=== PATIENT | male | born 1950 | race Caucasian/White ===

== ENCOUNTER 2018-05-31 11:30 | Emergency (ER) | payer OTHER ==
[~2018-05-31] VITALS: Ht 182.9 cm; Wt 98.0 kg
[2018-05-31 11:33] VITALS: TEMP 36.6; Ht 182.9 cm; Wt 98.0 kg
[2018-05-31] MEDS ORDERED: LIDOCAINE 4% W/AFRIN NASAL SOLN 4ML ONE (11:42)
[2018-05-31] MEDS ORDERED: OXYMETAZOLINE HCL 0.05% NA SPR 15 ML BTL ONE (11:44)
[2018-05-31 12:05] LABS: HEMATOCRIT 42.6 % (42-52); HEMOGLOBIN 15.2 g/dL (14.0-18.0); MEAN CELL VOLUME 85.5 fL (80-100); MEAN CORPUSCULAR HEMOGLOBIN 30.5 pg (25-34); MEAN CORPUSCULAR HGB CONC 35.7 g/dl (32-36); MEAN PLATELET VOLUME 8.9 fL (7.4-10.4); PLATELET COUNT 210 K/uL (130-400); RED CELL DISTRIBUTION WIDTH CV 13.4 % (11.5-14.5); WHITE BLOOD COUNT 7.53 K/uL (4.8-10.8)
[2018-05-31 12:16] LABS: PTT PATIENT 28.4 SECONDS (21.0-31.0)
[2018-05-31] MEDS ORDERED: ATOR-26 PO (12:25)
[2018-05-31] MEDS ORDERED: LISI-461 PO (12:25)
[2018-05-31] MEDS ORDERED: SILVER NITR/POTASSIUM NITRATE APPLICATOR ONE (12:29)
[2018-05-31] MEDS ORDERED: LABETALOL HCL 100 MG TAB PO ONE (12:45)
[2018-05-31 14:11] VITALS: BP 144/113; PULSE 82; O2SAT 97
[2018-05-31] MEDS ORDERED: LABE100T3 PO (14:16)
--- NOTE | 2018-05-31 16:38 | EMERGENCY ROOM VISIT NOTE ---
History Report prepared by Melody: Lou Lundy Under the Supervision of: Dr. Adelso Longoria M.D. First contact with patient: 11:39 Chief Complaint: NOSE BLEED (MINOR) Stated Complaint: NOSE BLEED History of Present Illness The patient is a 68 year old male who presents to the Emergency Room with complaints of a sudden nose bleed beginning an hour and a half prior to arrival. The patient states that this is his third nose bleed episode in the last 4 days. He states that his nose bleeds have been right-sided. He reports that he placed cotton in his nose to stop the bleeding and states that he does not feel a lot of blood running down the back of his throat currently. The patient states that his nose bleeds have been getting worse. The patient states that he went to [facility] yesterday and had his nose looked at but was told that everything was normal. He states that he has a history of hypertension and that he takes medication for it. The patient states that his systolic blood pressure was 162 yesterday at [facility]. The patient denies being on blood thinners. Source of History: patient Onset: an hour and a half prior to arrival Position: nose Quality: other (nose bleed) Timing: other (sudden) Review of Systems See HPI for pertinent positives & negatives. A total of 10 systems reviewed and were otherwise negative. Past Medical & Surgical Medical Problems: (1) HTN (hypertension) Family History Patient reports no known family medical history. Social History Occupation Status: retired Current/Historical Medications Scheduled Atorvastatin (Lipitor), 0.5 TAB PO DAILY Labetalol Hcl (Labetalol Hcl), 1 TAB PO BID Miscellaneous Medications Lisinopril (Zestril), 10 MG PO Allergies Coded Allergies: NO KNOWN DRUG ALLERGIES (Unverified Allergy, Unknown, ., 05/31/18) Physical Exam Vital Signs Date Time Temp Pulse Resp B/P (MAP) Pulse Ox O2 Delivery O2 Flow Rate FiO2 05/31/18 14:11 82 18 144/113 97 Room Air 05/31/18 13:34 81 18 140/110 97 Room Air 05/31/18 13:00 79 18 176/127 96 Room Air 05/31/18 12:30 92 18 183/127 95 Room Air 05/31/18 12:11 91 20 169/119 95 Room Air 05/31/18 11:33 36.6 97 20 202/131 96 Room Air Physical Exam GENERAL: Patient is in no acute distress. HEENT: No acute trauma, normocephalic atraumatic, mucous membranes moist, no nasal congestion, no scleral icterus. There is some dried blood around his nose , mostly right-sided. He has cotton balls in both nostrils. Minimal posterior pharyngeal blood noted. NECK: No stridor, no adenopathy, no meningismus, trachea is midline. LUNGS: Clear to auscultation bilaterally, no wheeze, no rhonchi, breath sounds equal. HEART: Without murmurs gallops or rubs, regular rate and rhythm. ABDOMEN: Soft, nontender, bowel sounds positive, no hernias, no peritonitis. EXTREMITIES: No cyanosis or edema, full range of motion of all the joints without pain or difficulty, no signs for acute trauma. NEUROLOGIC: Oriented x 3, no acute motor or sensory deficits, no focal weakness. SKIN: No rash, no jaundice, no diaphoresis. Medical Decision & Procedures Laboratory Results 05/31/18 11:58 Test 05/31/18 11:58 Red Blood Count 4.98 M/uL (4.7-6.1) Mean Corpuscular Volume 85.5 fL (80-100) Mean Corpuscular Hemoglobin 30.5 pg (25-34) Mean Corpuscular Hemoglobin Concent 35.7 g/dl (32-36) RDW Standard Deviation 42.0 fL (36.4-46.3) RDW Coefficient of Variation 13.4 % (11.5-14.5) Mean Platelet Volume 8.9 fL (7.4-10.4) Prothrombin Time 10.5 SECONDS (9.0-12.0) Prothromb Time International Ratio 1.0 (0.9-1.1) Activated Partial Thromboplast Time 28.4 SECONDS (21.0-31.0) Partial Thromboplastin Ratio 1.1 Laboratory results reviewed by me. Medications Administered Medications (Trade) Dose Ordered Sig/Dia Route Start Time Stop Time Status Last Admin Dose Admin Labetalol HCl (Normodyne Tab) 100 mg NOW ONCE PO 05/31/18 12:45 05/31/18 12:46 DC 05/31/18 12:39 100 MG Procedure Control of right sided epistaxis: The patient blew the clots from his nose. Lidocaine and Afrin was applied, a nasal clip was applied. After 20 minutes, no further nasal bleeding was noted. No area of bleeding seen that would be amenable to cautery. ED Course 1138: The patient was evaluated in room C3. A complete history and physical exam was performed. 1142: Ordered Lidocaine HCl 4 ml. 1144: Ordered Oxymetazoline HCl 75 sprays. 1224: I checked on the patient. He is no longer bleeding. I could not find the spot that was the source. The patient's blood pressure is high so we will treat that for now and see how he does. 1245: Ordered Labetalol HCl 100 mg PO. 1358: I checked on the patient and he is doing well. 1420: Reevaluated the patient. Discussed results and discharge instructions: He verbalized understanding and agreement. The patient is ready for discharge. Medical Decision The patient is a 68 year old male who presents to the ED with complaints of a nose bleed. Differential diagnoses considered include coagulopathy, uncontrolled hypertension, anterior epistaxis, posterior epistaxis, sinusitis, and nasal trauma. There is no leukocytosis or concerning anemia. No coagulopathy. On exam, I could not find a source for the right sided nasal bleeding. The patient had his right nose anesthetized with lidocaine, Afrin was used to help control bleeding. A nasal clip was applied for about 20 minutes. After this procedure, there was no further nasal bleeding. The patient did receive oral labetalol for the persistently high blood pressure , his blood pressure is starting to reduce. Patient presents with intermittent right-sided epistaxis. There is no spot to cauterize noted on exam today. The bleeding is now controlled. Blood pressure is improved. Patient is being discharged with instructions on how to care for his nose, he will start labetalol on top of his regular medications for blood pressure. He will follow-up with ENT and with his family doctor's office. Medication Reconcilliation Current Medication List: was personally reviewed by me Blood Pressure Screening Patient's blood pressure: Elevated blood pressure Blood pressure disposition: Referred to PCP Impression Primary Impression: Right-sided epistaxis Additional Impression: HTN (hypertension) Scribe Attestation The scribe's documentation has been prepared under my direction and personally reviewed by me in its entirety. I confirm that the note above accurately reflects all work, treatment, procedures, and medical decision making performed by me. Departure Information Dispostion Home / Self-Care Prescriptions Labetalol Hcl (LABETALOL HCL) 100 Mg Tab 1 TAB PO BID for 30 Days, #60 TAB 5 Refills Prov: Adelso Longoria M.D. 05/31/18 Referrals Merari Newton, Kate Mccain M.D. Forms HOME CARE DOCUMENTATION FORM, IMPORTANT VISIT INFORMATION, WORK / SCHOOL INSTRUCTIONS Patient Instructions My [facility] Additional Instructions start labetalol 2x per day to help the blood pressure if nose rebleeds, use the afrin spray and apply the clip for 30 minutes--return to the ED if the bleeding is not controlled call and set up appt withe the sarah anguiano for a blood pressure check call and set up appt with ENT doctor lab testing today was all ok Problem Qualifiers
== END 2018-05-31 14:24 | disposition home or self-care (01) ==
LOC: C.EDB 11:31 → C.EDC 14:24
DX: R04.0 Epistaxis (principal); I10 Essential (primary) hypertension